=== PATIENT | male | born 1945 | race Caucasian/White ===

== ENCOUNTER 2017-03-20 06:40 | Day surgery (SDC) | payer MEDICARE ==
[~2017-03-20] VITALS: Ht 172.7 cm; Wt 5.0 kg
[~2017-03-20 06:40] MED LIST: ASPI81TA82 PO; CQ 10 PO; EMPA1TAB3 PO; GLUCTAB PO; LEVO.025 PO; LISI-363 PO; TAB-TAB; TYLE650T9 PO; VITA10002; ZOCO80TA PO; tramadol PO
[2017-03-20 07:26] VITALS: BP 119/75; PULSE 66; RESP 18; TEMP 98.7; O2SAT 95
[2017-03-20] MEDS ORDERED: METF500T PO (07:31)
[2017-03-20] MEDS ORDERED: MULT-159 PO (07:31)
[2017-03-20] MEDS ORDERED: ZOSTINJ SQ (07:31)
[2017-03-20] MEDS ORDERED: LISI-515 PO (07:31)
[2017-03-20] MEDS ORDERED: ALPR0.25 PO (07:31)
[2017-03-20] MEDS ORDERED: ATOR1TAB18 PO (07:31)
[2017-03-20] MEDS ORDERED: ASPI81CH PO (07:31)
[2017-03-20] MEDS ORDERED: ACET650T67 PO (07:31)
[2017-03-20] MEDS ORDERED: COQ-100C5 PO (07:31)
[2017-03-20] MEDS ORDERED: TRAM50TA PO (07:31)
[2017-03-20] MEDS ORDERED: EMPA1TAB3 PO (07:31)
[2017-03-20] MEDS ORDERED: LEVO25TA4 PO (07:31)
[2017-03-20] MEDS ORDERED: HEPARIN-NS/PF INJ 500 ML ONE (08:11)
[2017-03-20] MEDS ORDERED: MIDAZOLAM HCL 2 MG/2 ML VIAL ONE (08:12)
[2017-03-20] MEDS ORDERED: BACITRACIN OINT 0.9 GM PKT TOP ONE (09:00)
[2017-03-20] MEDS ORDERED: SODIUM CHLOR 0.9% 250 ML INJ 250 ML IV PRN (09:00)
[2017-03-20] MEDS ORDERED: ONDANSETRON HCL 4 MG/2 ML VIAL IV PRN (09:00)
[2017-03-20] MEDS ORDERED: ATROPINE SULFATE 1 MG/ML VIAL IV PRN (09:00)
[2017-03-20] MEDS ORDERED: SODIUM CHLORIDE 0.9% FLUSH 10 ML FLUSH IV FLUSH PRN (09:00)
[2017-03-20] MEDS ORDERED: METOCLOPRAMIDE HCL 10 MG/2 ML VIAL IV PRN (09:00)
[2017-03-20] MEDS ORDERED: LORazepam 2 MG/ML VIAL IV PRN (09:00)
[2017-03-20] MEDS ORDERED: MISC INFORMATION XX ONE (09:00)
[2017-03-20] MEDS ORDERED: SODIUM CHLORIDE 0.9% FLUSH 10 ML FLUSH IV FLUSH SCH (09:00)
[2017-03-20] MEDS ORDERED: LIDOCAINE HCL 1% 50 ML VIAL INFIL PRN (09:00)
--- NOTE | 2017-03-20 09:00 | CATHPROC ---
[facility] HIS Report Study Information Study Number Admission Scheduled Start Study Start [id number] Mar 20 2017 6:40AM 03/20/2017 Mar 20 2017 8:05AM [facility] Service Cardiac Catheterization Admit Source Facility Department Other [facility] - [employer] Physician and Clinical Staff Initial MD Rolon, Delvin Welding Technician Dave RN, Juan RecordKelle Beltre,COUNTER HAND TECH2 Scrub Radha Hebert,RT(R) Procedures Performed Procedure Location (Site) Vessel Name Coronary Angiograms LCA Left Coronary Coronary Angiograms RCA Right Coronary Coronary Angiograms GAMBLE Graft Left Coronary Coronary Angiograms HÉCTOR-LAD Left Coronary L Heart Cath Equipment Time Machine Bender Description Size Mfg Part Number Used/Scraped TRANSDUCER, TRUWAVE [id number] 08:42 TOLEDO BURGESS * Used W/STOCKCOCK *[id number] *[id number] *[id number] 08:42 [employer] PACK, CCL CUSTOM * Used *[id number] 08:42 [employer]uda[employer]cert PACER PEN, SKIN DUAL W/ RULER * Used *[id number] 08:42 [employer] MEDICAL SHEATH, FR6.5 PRELUDE 11CM FR 6.5 038ACT Used *[id number] 08:42 [employer] MEDICAL WIRE, 3MMJ .035 180CM 180CM Used *[id number] 08:42 NAMIC MANIFOLD, 4 PORT * Used *[id number] 08:42 NYCOMED OMNIPAQUE, 350 MG, 100ML 100ML [id number] Used [id number] 08:42 DAVALOS MEDICAL BLANKET,WARM AIR CCL * Used *[id number] History: Current Medications Medication Dosage/Unit Route Frequency Last Date/Time Taken ASA Statins (any) LISINOPRIL TRAMADOL History: Allergies Allergy Reaction No Known Allergies History: Risk Factors Family History of Hypertension Dyslipidemia Previous MN Previous Heart Failure Premature CAD Yes Yes Yes No No Prior Valve Prior PCI Prior CABG Prior CABGDate Surgery No No Yes 09/23/1991 Cerebrovascular Peripheral Artery Chronic Lung On Dialysis Diabetes Disease Disease Disease No No Yes No Yes History: Symptoms/Diagnosis Selection Items Angina-unstable History: CV Disease Selection Items Known CAD History: Stress Tests Stress or Imaging Studies Performed Yes Standard Exercise Stress Test No Stress Echo No Stress Test SPECT No Stress Test CMR Stress Test CMR Result Stress Test CMR Ischemia Risk/Extent Yes Positive High Cardiac CTA Coronary Calcium Score No No History: Other Disease Selection Items CAD HTN History: MN/CV Data Previous CABG Date 09/23/1991 History: Other Current Smoker No Labs Hgb (g/dl) Hct (%) WBC (l/cumm) 11.60-17.00 35.00-51.00 4.00-11.00 16.0 47.2 6.3 Glucose (mg/dl) BUN (mg/dl) Creatinine (mg/dl) BUN:Creatinine (1:x) 74.00-106.00 7.00-18.00 0.50-1.30 10.00-20.00 205 25 0.7 35.7 Na (meq/l) K (meq/l) 136.00-145.00 3.50-5.10 137 4.4 Medication Medication Total Dose (Bolus/Oral) Medication Total Dosage/Unit 1% XYLOCAINE 20 mL VERSED 2 mg Medications (Bolus/Oral) Medication Time Given Dosage/Unit Administered By Reason 1% XYLOCAINE 03/20/2017 8:36:33 AM 20 mL Delvin Rolon 20 mL 1% XYLOCAINE given in lab by Delvin Rolon in Left Groin via Subcutaneous. Ordered by Delvin Ordonez. VERSED 03/20/2017 8:37:04 AM 2 mg Juan Acosta RN 2 mg VERSED given in lab by Juan Acosta RN in Left Antecubital via Peripheral IV. Ordered by Delvin Ordonez. Medication (Drip) Medication Time Given Dosage/Unit Concentration/Unit Diluent (ml) Solutio n IV Solutions 03/20/2017 8:05:35 AM 0 mL (IV) 500 NaCl .9 IV Solutions given in lab by Juan Acosta RN in Right Hand via Peripheral IV. Pump/Drip Flow = 20 ml/ hr using NaCl .9. Ordered by Delvin Rolon. Initial Case Assessment Cardiovascular HR NIBP 62 131/76 Edema Present Skin color Skin None Normal Warm Dry Circulatory - Right Pulses Dorsalis Pedis 2 Scale (0,1,2,3,4,d) Circulatory - Left Pulses Dorsalis Pedis 2 Scale (0,1,2,3,4,d) Neurological State Oriented to time-place- Alert Moves all extremities person Respiration - General Respiration Rate SpO2 (%) (B/min) 15 96 Final Case Assessment Cardiovascular HR NIBP 63 123/71 Edema Present Skin color Skin None Normal Warm Dry Circulatory - Right Pulses Dorsalis Pedis 2 Scale (0,1,2,3,4,d) Circulatory - Left Pulses Dorsalis Pedis 2 Scale (0,1,2,3,4,d) Neurological State Oriented to time-place- Alert Moves all extremities person Respiration - General Respiration Rate SpO2 (%) (B/min) 12 94 Chronological Log Time Study Chronological Log 8:04:55 Patient arrived via Bed. 8:04:56 Patient Name, D.O.B, / Armband Verified By R.N. 8:04:57 Consent signed by the physician and the patient and verified by the [employer] staff. 8:04:57 Pre-op and post- op instructions given; patient acknowledges understanding of instructions. 8:05:02 Patient has been NPO for Less than 6Hrs. 8:05:03 Skin Breakdown- 8:05:13 Patient Warmer Placed on the Table. 8:05:33 A # 20 IV was noted in the Antecubital (left). Grade = 0 IV Solutions given in lab by Juan Acosta RN in Right Hand via Peripheral IV. Pump/Drip Flow = 20 ml/hr using NaCl .9. 8:05:35 Ordered by Delvin Rolon. 8:05:36 History and physical on the chart or being dictated. Vitals capture started with the following parameters, Patient=Adult, Interval=5 min, Initial Pr axlrvc=797 mmHg, 8:14:46 Deflation Rate=5 mmHg 8:15:27 HR=62 bpm, PQQF=023/76 mmhg, SpO2=96.0 %, Resp=15 B/min, Pain=0, Danielle=10, Brown=2 Assessment: Initial Case, HR=62 BPM, MMQX=223/76 mmhg, Edema=None, Color=Normal, Skin = Warm, D ry Right Pulses: Britton Ped=2 8:16:34 Left Pulses: Britton Ped=2, Femoral=3 Neurological: State=Alert, Ox3, COOMBS Respiration: Resp=15 B/min, SpO2=96 % 8:17:22 HR=60 bpm, SRAP=152/75 mmhg, SpO2=96.0 %, Resp=10 B/min, Pain=0, Danielle=10, Brown=2 8:19:23 HR=62 bpm, DZAC=653/73 mmhg, SpO2=95.0 %, Resp=15 B/min, Pain=0, Danielle=10, Brown=2 8:21:22 HR=74 bpm, OHVY=225/76 mmhg, SpO2=96.0 %, Resp=16 B/min, Pain=0, Danielle=10, Brown=2 8:22:33 Right groin prepped with 2% chlorhexidine, and with a 3 min. waiting time. 8:22:53 Pressure channel 1 zeroed. 8:23:07 Reference ECG taken 8:23:21 HR=66 bpm, XTKQ=875/79 mmhg, SpO2=95.0 %, Resp=11 B/min, Pain=0, Danielle=10, Borwn=2 8:25:23 HR=61 bpm, BTMK=096/76 mmhg, SpO2=95.0 %, Resp=10 B/min, Pain=0, Danielle=10, Brown=2 8:27:22 HR=61 bpm, OMZU=725/72 mmhg, SpO2=94.0 %, Resp=9 B/min, Pain=0, Danielle=10, Brown=2 8:29:23 HR=61 bpm, BDGI=373/71 mmhg, SpO2=95.0 %, Resp=12 B/min, Pain=0, Danielle=10, Brown=2 8:31:22 HR=60 bpm, HTSE=512/68 mmhg, SpO2=97.0 %, Resp=15 B/min, Pain=0, Danielle=10, Brown=2 8:33:21 HR=60 bpm, NHNT=455/69 mmhg, SpO2=94.0 %, Resp=10 B/min, Pain=0, Danielle=10, Brown=2 8:35:22 HR=62 bpm, IZML=416/70 mmhg, SpO2=95.0 %, Resp=10 B/min, Pain=0, Danielle=10, Brown=2 Time Out. Correct patient, correct procedure,correct physician, ,power injector loaded with cont rast with surgical team 8:35:33 present. Time Out Concurred by , individual staff in procedure 8:36:14 Case Start 8:36:33 20 mL 1% XYLOCAINE given in lab by Delvin Rolon in Left Groin via Subcutaneous. Ordered Delvin Torres. 8:37:04 2 mg VERSED given in lab by Juan Acosta RN in Left Antecubital via Peripheral IV. Ordered Delvin Torres. 8:37:57 HR=72 bpm, ETRN=748/79 mmhg, SpO2=95.0 %, Resp=10 B/min, Pain=0, Danielle=10, Brown=2 8:38:41 Access site was Left Femoral Artery. 8:39:23 HR=66 bpm, WBUP=104/73 mmhg, SpO2=93.0 %, Resp=11 B/min, Pain=0, Danielle=10, Brown=2 8:41:02 A sheath was advanced into the Fem Art (left) using the ~TECHNIQUE~ technique. 8:41:24 HR=66 bpm, HAON=929/67 mmhg, SpO2=95.0 %, Resp=15 B/min, Pain=0, Danielle=10, Brown=2 A JL 4.0 INFINITI CATHETER FR 6 was advanced over a wire. OMNIPAQUE, 350 MG, 100ML 100ML was use d for 8:41:47 injections. Recorded Pressure: Ao, HR=66, Condition=Condition 1 8:41:49 (Aorta) Ao 107/59/77 8:41:50 The LCA was injected and visualized at various angles. OMNIPAQUE, 350 MG, 100ML 100ML used. After removing the current catheter a JR 4.0 GUIDE CATHETER FR 6 was advanced over a WIRE, 3MMJ .035 180CM 8:43:14 180CM. 8:43:23 HR=84 bpm, RDYZ=441/59 mmhg, SpO2=94.0 %, Resp=17 B/min, Pain=0, Danielle=10, Brown=2 8:45:22 HR=64 bpm, NEQY=334/60 mmhg, SpO2=92.0 %, Resp=12 B/min 8:45:25 The GAMBLE Graft was injected and visualized at various angles. OMNIPAQUE, 350 MG, 100ML 100ML used. 8:45:30 The HÉCTOR-LAD was injected and visualized at various angles. OMNIPAQUE, 350 MG, 100ML 100ML u sed. 8:46:49 The RCA was injected and visualized at various angles. OMNIPAQUE, 350 MG, 100ML 100ML used. 8:47:02 Catheter was removed 8:47:20 HR=69 bpm, LUMB=634/65 mmhg, SpO2=93.0 %, Resp=13 B/min, Pain=0, Danielle=10, Brown=2 8:48:40 Catheter was removed 8:49:47 Case End 8:50:00 HR=62 bpm, PWKV=726/60 mmhg, SpO2=95.0 %, Resp=12 B/min, Pain=0, Danielle=10, Brown=2 8:51:20 HR=62 bpm, IORV=398/70 mmhg, SpO2=93.0 %, Resp=11 B/min, Pain=0, Danielle=10, Brown=2 8:51:40 Catheter(s) removed without difficulty 8:51:41 Sheath(s) left in place, will be removed in Holding Area 8:51:46 No case complications noted. 8:51:46 Sterile dressing applied to site 8:51:52 Bedside Report will be given. 8:51:56 Contrast Scanned 8:51:59 A Left Heart Cath was performed. 8:53:19 HR=63 bpm, VSUP=182/71 mmhg, SpO2=94 %, Resp=12 B/min, Pain=0, Danielle=10, Brown=2 8:53:28 Vitals capture stopped. Assessment: Final Case, HR=63 BPM, MQCU=047/71 mmhg, Edema=None, Color=Normal, Skin = Warm, Dr y Right Pulses: Britton Ped=2 8:53:46 Left Pulses: Britton Ped=2, Femoral=3 Neurological: State=Alert, Ox3, COOMBS Respiration: Resp=12 B/min, SpO2=94 % 8:56:53 Patient moved to [facility] End Study - Contrast Media Used In Study Contrast Total Opened (mL) Total Used (mL) Total Wasted (mL) Omnipaque 30 30 0 End Study - Maximum Contrast Load Max Contrast Load (mL) 604.9 End Study - Radiation Exposure Fluoro Time (minutes) 3.8 End Study - Patient Disposition Complications Transferred To Telemetry Bed
--- NOTE | 2017-03-20 10:13 | MA ---
cc: PAULA ZARAGOZA MD DATE: 03/20/2017 The patient was prepped and draped in the usual fashion. A six sheath was inserted percutaneously into the left femoral artery. Coronary angiography was done with Elida preformed catheters. RESULTS Aortic pressure was 110/60. Left ventriculography was not done. Coronary angiography of the left main coronary was totally occluded essentially at its origin. The right coronary artery was very small and nondominant, stenosis of approximately 90% was present in its proximal portion. Left internal mammary artery was anastomosed into what appeared to be the first obtuse marginal branch of the circumflex, it was widely patent with good flow into the circumflex and retrograde into the marginal and retrograde back into the circumflex. A right internal mammary artery was anastomosed into the left anterior descending artery and was widely patent throughout its course. CONCLUSION The patient demonstrates patent HÉCTOR and GAMBLE to LAD and obtuse marginal, respectively. The nondominant right coronary stenosis is too small for intervention and medical management will be continued. MD ABEL Napoles/OBIL /9:05 AM /10:00 AM
== END 2017-03-20 13:31 | disposition home or self-care (01) ==
LOC: HCAT 06:40 → HDIC 06:42 → HCAT 13:31
PROVIDERS: ATTEND Internal Medicine Cardiovascular Disease
DX: I25.10 Atherosclerotic heart disease of native coronary artery without angina pectoris (principal); R94.39 Abnormal result of other cardiovascular function study; I44.1 Atrioventricular block, second degree; I71.4 Abdominal aortic aneurysm, without rupture; E11.21 Type 2 diabetes mellitus with diabetic nephropathy; N18.2 Chronic kidney disease, stage 2 (mild); I12.9 Hypertensive chronic kidney disease with stage 1 through stage 4 chronic kidney disease, or unspecified chronic kidney disease; E11.22 Type 2 diabetes mellitus with diabetic chronic kidney disease
CPT/HCPCS: 93454; C1769; C1893; J1644; J2250